=== PATIENT | female | born 1980 | race Caucasian/White ===

== ENCOUNTER 2019-06-15 12:19 | IRF | payer OTHER, SELFPAY ==
[2019-06-15 13:37] VITALS: BP 138/73; PULSE 85; RESP 18; TEMP 36.6; O2SAT 100; BMI 25.8
--- NOTE | 2019-06-15 14:17 | ADMGEN ---
This patient, Agustina Parsons, was admitted to [facility] Room 226-02. Patient/family oriented to hospital policies and general routines including ID bracelet, bed and alarms, visiting hours, pain management, procedures, bathroom and other care routines, personal items, smoking policy, room service/diet, and visiting hours. Valuables list has been completed. Information on how to activate the Rapid Response Team has been discussed. Patient/Family are encouraged to report perceived risks to care and to ask questions if they do not understand what they are told or what they should do.
[2019-06-15] MEDS: GABAPENTIN 300 MG CAPSULE PO (16:35)
[2019-06-15 16:40] VITALS: PULSE 85
[2019-06-15] MEDS: carvediloL 6.25 MG TABLET PO (16:40)
[2019-06-15] MEDS: metFORMIN HCL 500 MG TABLET 1000 MG PO (16:41)
[2019-06-15] MEDS: CEFDINIR 300 MG CAPSULE PO (16:42)
[2019-06-15 16:57] LABS: Glucose Point of Care 264 (65-105)
[2019-06-15] MEDS: DOXYCYCLINE HYCLATE 100 MG TABLET PO (21:47)
[2019-06-15] MEDS: ATORVASTATIN 40 MG TABLET PO (21:47)
[2019-06-15 22:00] VITALS: BP 128/64; PULSE 82; RESP 17; TEMP 36.3; O2SAT 100
[2019-06-15 22:16] LABS: Glucose Point of Care 90 (65-105)
[2019-06-16 05:09] LABS: Basophils Absolute Auto 0.1 K/mm3 (0.0-0.1); Basophils Percent Auto 0.7 % (0.2-1.2); Eosinophils Absolute Auto 0.7 K/mm3 (0-0.3); Eosinophils Percent Auto 6.6 % (0-4.4); Hematocrit 30.9 % (37.0-47.0); Hemoglobin 9.6 g/dL (12.0-15.0); Immature Granulocyte Absolute 0.04 K/mm3 (0.00-0.031); Immature Granulocyte Percent A 0.4 % (0-0.5); Lymphocytes Absolute Auto 4.41 K/mm3 (0.9-3.2); Lymphocytes Percent Auto 42.7 % (18.3-44.2); Mean Corpuscular HGB Conc 31.1 g/dl (32-36); Mean Corpuscular Hemoglobin 27.8 pg (26-34); Mean Corpuscular Volume 89.6 fl (80-100); Mean Platelet Volume 9.2 fl (7.4-10.4); Monocytes Absolute Auto 0.7 K/mm3 (0.1-0.6); Monocytes Percent Auto 6.3 % (2.6-8.5); Neutrophils Absolute Auto 4.5 K/mm3 (1.3-6.7); Neutrophils Percent Auto 43.3 % (45.5-73.1); Platelet Count Result 542 k/mm3 (150-375); Red Blood Count 3.45 M/mm3 (4.2-5.4); Red Cell Distribution Width 14.1 % (11.5-14.5); White Blood Count 10.3 K/mm3 (4.5-10.0)
[2019-06-16 05:33] LABS: Blood Urea Nitrogen 21 mg/dL (7-17); Calcium 9.6 mg/dL (8.4-10.2); Carbon Dioxide 29 mmol/L (22-30); Chloride 96 mmol/L (98-107); Estimated CRCL calculation 48 ml/min; Estimated Glomerular Filt Rate 50; Glucose 91 mg/dL (65-105); Potassium 4.7 mmol/L (3.4-5.0); Sodium 137 mmol/L (137-145)
[2019-06-16] MEDS: CEFDINIR 300 MG CAPSULE PO ×2 (05:41→17:38)
[2019-06-16 06:00] VITALS: BP 112/51; PULSE 84; RESP 18; TEMP 36.2; O2SAT 97
[2019-06-16 06:19] LABS: Glucose Point of Care 108 (65-105)
--- NOTE | 2019-06-16 09:30 | WPDREHABHP ---
H&P: HPI History of Present Illness Chief complaint: Right BKA Narrative: Agustina Parsons is a 38 year old female HISTORY OF PRESENT ILLNESS: The patient's primary rehab impairment category is amputation -lower extremity The etiologic diagnosis is osteomyelitis of right lower extremity I saw this patient [id number] on June 16, 2019 at 9:30 a.m. The patient is a 38-year-old white woman with a past medical history of uncontrolled diabetes mellitus, atherosclerosis of bilateral lower extremities, renal cell carcinoma status post partial nephrectomy, diabetic neuropathy diabetic retinopathy and chronic right foot wound who initially presented to as with [facility] on May 25, 2019 with complaints of worsening drainage, tingling, and discoloration to the right 3rd toe. Imaging demonstrated acute osteomyelitis. She was admitted and vascular surgery was consulted pre she underwent a right 3rd toe amputation and family's to November 07, 2019 Pri[facility] and Infectious Disease was consulted and she was started treated with vancomycin and cefepime and then was transitioned to vancomycin and Rocephin until June 10, 2019. She had fever on May 29, 2019 and underwent a right foot debridement on May 30, 2019. Wound cultures and May 30, 2019 showed no growth to date. She continued to have fevers and was switched to cefepime and and daptomycin on further [id number]. Her WBC continue to trend up from 11,[address] to 27,400. Vascular surgery continue to follow and patient underwent a right [id number] amputation on June 07, 2019. Postoperatively she experienced acute pain which she still has, encephalopathy, uncontrolled diabetes mellitus and acute blood-loss anemia. High acute pain is now controlled with oral pain medications. Acute encephalopathy thought to be related to narcotics and the patient was improved and cleared. She is alert and oriented times for now but in significant amount of pain acute blood-loss anemia stable with a hemoglobin of 9.0 after receiving a transfusion of 1 unit of packed RBCs on June 17, 2019. Diabetes which the patient tells me is the type 2 is better controlled with an increase in the Lantus from 25 units to 28 units. Leukocytosis resolved with the white count at 8600. Infectious Disease stopped all IV antibiotics in the setting of addition of the infected leg and ordered oral Omnicef and doxycycline for 10 days to be completed June 20, 2019. Vascular surgery ordered a knee immobilizer. Follow-up appointment with Dr. Dwyer is on July 13, 2019 DVT prophylaxis with subcutaneous heparin although the discharge medications from the referring hospitals does not include the subcutaneous heparin I will decide it depending upon how the patient is active in over acute rehab program Therapy was initiated at the acute care facility and the patient transferred to us from [facility] on June 15, 2019 FALLS OR SURGERIES: The patient has had major surgeries in the 100 days prior to admission. They had no falls in the past year. They had no falls with injury in the past year. PAST MEDICAL HISTORY: anxiety and depression, atherosclerosis of bilateral lower extremities, left-sided renal cell carcinoma, decreased visual acuity due to diabetic retinopathy, ischemic 5th toe right foot ulcer tobacco abuse uncontrolled diabetes mellitus with diabetic neuropathy. PAST SURGICAL HISTORY: Sees section x2, dilatation and curettage, exploratory laparotomy x2 for endometriosis, laparoscopic partial left nephrectomy, and tubal ligation SOCIAL HISTORY: patient is single, current everyday smoker, occasional alcohol use, no drug abuse FAMILY HISTORY: father had heart disease hypertension. Mother had colon cancer. Sister with diabetes PRIOR LEVEL OF FUNCTION: Eating was INDEPENDENT Oral Care was INDEPENDENT Toileting Hygiene was INDEPENDENT Shower/Bathing w
[2019-06-16] MEDS: carvediloL 6.25 MG TABLET PO ×2 (09:33→17:38)
[2019-06-16] MEDS: metFORMIN HCL 500 MG TABLET 1000 MG PO ×2 (09:34→17:38)
[2019-06-16] MEDS: ACIDOPHILUS/BULGARICUS CHEWABLE TABLET 1 TABLET PO (09:35)
[2019-06-16] MEDS: GABAPENTIN 300 MG CAPSULE PO ×3 (09:35→17:38)
[2019-06-16] MEDS: INSULIN GLARGINE (*BKC) 100 UNITS/ML 25 UNITS SUB-Q (09:35)
[2019-06-16] MEDS: DOXYCYCLINE HYCLATE 100 MG TABLET PO ×2 (09:35→20:32)
--- NOTE | 2019-06-16 11:10 | PCCCNOTE ---
On 06/16/19, the student, [Scout Mosqueda ], provided care and completed [facility] documentation on this patient. I have reviewed the student's documentation and agree with the findings.
[2019-06-16 11:45] LABS: Glucose Point of Care 126 (65-105)
[2019-06-16 13:05] VITALS: BMI 25.8
[2019-06-16 14:00] VITALS: BP 116/71; PULSE 84; RESP 17; TEMP 36.1; O2SAT 100
[2019-06-16 16:57] LABS: Glucose Point of Care 90 (65-105)
[2019-06-16 17:38] VITALS: PULSE 84
[2019-06-16] MEDS: ATORVASTATIN 40 MG TABLET PO (20:31)
[2019-06-16 21:12] LABS: Glucose Point of Care 64 (65-105)
[2019-06-16 22:00] VITALS: BP 123/70; PULSE 81; RESP 18; TEMP 36.3; O2SAT 100
[2019-06-17 00:46] LABS: Glucose Point of Care 37 (65-105)
[2019-06-17 01:09] LABS: Glucose Point of Care 47 (65-105)
[2019-06-17 01:20] LABS: Glucose Point of Care 58 (65-105)
[2019-06-17 01:46] LABS: Glucose Point of Care 52 (65-105)
[2019-06-17 02:15] LABS: Glucose Point of Care 71 (65-105)
[2019-06-17 06:00] VITALS: BP 112/64; PULSE 86; RESP 17; TEMP 36.2; O2SAT 94
[2019-06-17 07:14] LABS: Glucose Point of Care 197 (65-105)
[2019-06-17] MEDS: CEFDINIR 300 MG CAPSULE PO ×2 (08:45→17:15)
[2019-06-17] MEDS: carvediloL 6.25 MG TABLET PO (08:45)
[2019-06-17] MEDS: DOXYCYCLINE HYCLATE 100 MG TABLET PO ×2 (08:45→21:19)
[2019-06-17] MEDS: GABAPENTIN 300 MG CAPSULE PO ×3 (08:45→17:14)
[2019-06-17] MEDS: ACIDOPHILUS/BULGARICUS CHEWABLE TABLET 1 TABLET PO (08:45)
[2019-06-17] MEDS: lisinopriL 2.5 MG TABLET PO (09:00)
--- NOTE | 2019-06-17 09:00 | RPD ---
INDIVIDUALIZED PLAN OF CARE FOR Agustina Parsons Brief Synthesis of Pre-Admission Screen, Post-Admission Evaluation and Therapy Evaluations: The patient presents to rehab with osteomyelitis of the right lower extremity. Comorbidities include uncontrolled diabetes mellitus with hyperglycemia, diabetic neuropathy, renal cell carcinoma, peripheral vascular disease, leukocytosis, dyslipidemia, bilateral lower extremity arterial atherosclerosis, thyroid nodule, tobacco abuse, acute blood loss anemia, fever, infection, acute postoperative pain, chronic kidney disease. The patient requires physician services for medical oversight, management of post-op complications in the setting of present comorbidities, management of uncontrolled diabetes mellitus diagnosis, and pain management. Post-op complications have included acute postoperative pain, leukocytosis, acute blood loss anemia requiring transfusion, and acute kidney injury. The patient requires nursing services for anticoagulation therapy, diabetes training, DVT prophylactics, infection protection, medication management and education, pressure relief, and wound care. Deficits include:ADLs, Balance, Endurance, Mobility, Pain Management, ROM, Safety, Strength,Transfers Seat Joiner Chainstitch/Case Management for: Discharge Planning and Patient/Family Counseling Physical Therapy:5 days per week for 90 minutes. Treatments may include: Therapeutic Exercise, Gait Training, Neuromuscular Re-education, Transfer Training, Community Reintegration, Bed Mobility, Patient/Family Education, Wheelchair Mobility Group Therapy/Concurrent Therapy Rationales: -Improve attention span during functional activities in a distracted environment. -Enhance problem solving and/or adequate judgment skills during functional activities in a distracted environment. -Promote increased safety awareness in a distracted environment to reduce fall risk with functional tasks, transfers, and ambulation to allow a more safe, self-sufficient return to the home environment. -Improve dynamic balance skills to promote safety and independence with functional activities in a distracted environment for maximum gain. Occupational Therapy: 5 days per week for 90 minutes. Treatments may include: Therapeutic Exercise, Therapeutic Activity, Cognitive Training, Self-Care Transfer Training, Community Reintegration, Home Management, Patient/Family Education, Wheelchair Mobility Training, Energy Conservation Training Group Therapy/Concurrent Therapy Rationales: -Allow therapist to observe and teach generalization and carry-over of skills learned in individual therapy. -Enhance problem solving and sequencing skills during therapeutic activities in a distracted environment. -Promote increased safety awareness in a realistic setting to reduce fall risk with functional tasks due to visual and verbal distractions. -Increase functional level with ADLs, ADL transfers and use of adaptive equipment through therapeutic activities with others while promoting safety to allow a more safe, self-sufficient return home. Medical Prognosis: Good Anticipated Length of Stay: 12 days Rehab Goals: Eating Goal: 06-Independent Oral Hygiene Goal: 06-Independent Toileting Hygiene Goal: 06-Independent Shower/Bathe Self Goal: 06-Independent Upper Body Dressing Goal: 06-Independent Lower Body Dressing Goal: 06-Independent Putting On/Taking Off Footwear Goal: 06-Independent Rolling Left and Right Goal: 06-Independent Sit to Lying Goal: 06-Independent Lying to Sitting on Side of Bed Goal: 06-Independent Sit to Stand Goal: 06-Independent Chair/Uie-gm-Jnebj Transfer Goal: 06-Independent Toilet Transfer Goal: 06-Independent Car Transfer Goal: 06-Independent Walk 10' Goal: 06-Independent Walk 50' with Two Turns Goal: 06-Independent Walk 150' Goal: 06-Independent Walk 10' on Uneven Surface Goal: 06-Independent 1 Step (Curb) Goal: 04-Supervision or Touching Assistance 4 Steps Goal: 03-Partial/Modera
[2019-06-17 09:52] LABS: Glucose Point of Care 160 (65-105)
--- NOTE | 2019-06-17 10:40 | PCPTNOTE ---
Agustina Parsons was evaluated for a standard walker on 06/17/2019 by this physical therapist. The standard walker will resolve patient's mobility limitations and will be used for ADL's within the home. The patient can safely use the standard walker. ?The standard walker will resolve the patient?s mobility deficits, including all transfers, gait activities in and out of the home. Khalida Arriaga
[2019-06-17 11:54] LABS: Glucose Point of Care 111 (65-105)
[2019-06-17 14:00] VITALS: BP 122/68; PULSE 78; RESP 18; TEMP 36; O2SAT 99
--- NOTE | 2019-06-17 14:48 | PC.NURSE ---
Spoke with nurse at office of Dr. Juan Dwyer to inquire about date of staple removal. Nurse states do not touch those yulia or the doctor will be furious. That is why she is coming in for the appointment on the . The doctor will remove the yulia then. Patient made aware of staple removal scheduled for 07/13/19.
--- NOTE | 2019-06-17 15:37 | WPDNEURORHBP ---
Subjective Date/time seen: 06/17/19 15:37 Interval history: this 38-year-old poorly controlled diabetic woman is recuperating on the acute rehab with the right [id number]-[id number] amputation secondary to osteomyelitis patient is a smoker which is a risk factor she is on antibiotic however her sugars are fluctuating dipping down quite a bit and needs adjustment in her diabetic medication which I will do and she would also need a community health educator to see her and give us the recommendation about the changes which might be needed in future to control her diabetes Patient on the other hand is afebrile denies any headache nausea vomiting chest pain shortness of breath bowel or bladder control or any neurological symptoms apart from evidence of retinopathy and also neuropathy Review of Systems Review of Systems: All systems reviewed & are unremarkable except as noted in HPI and below Functional Status Ambulation Ability Ability to Ambulate 10 Feet: Contact Guard Ability to Ambulate 50 Feet With 2 Turns: Contact Guard Ambulation Assistive Devices: Walker, Standard Transfers Ability Ability to Transfer In/Out of Chair: Standby Assistance Exam Const: General: comfortable and no acute distress HENMT: General nose exam: Normal nares present Mouth: Yes moist mucous membranes Eyes: General: appearance normal, both eyes and all related structures Neck: Neck: supple and no JVD Resp: Effort & Inspection: normal respiratory effort Auscultation: clear to auscultation bilaterally Cardio: Rate: regular rate Rhythm: regular rhythm GI: GI Palp: Yes Soft to palpation Auscultation: normal bowel sounds Skin: General skin exam: normal color and no rashes or lesions noted Neuro: Other: patient is awake and alert well oriented time place and person has normal speech and mind function apart from diabetic retinopathy she really does not have any cranial nerve signs she has generalized weakness of both upper lower extremities with evidence of peripheral neuropathy and also evidence of peripheral vascular disease Extrem: Other: right BKA clean Psych: Mental Status: mental status grossly normal Objective Data Vital Signs Vital Signs: Vital Signs - 24 hr 06/16/19 17:38 06/16/19 22:00 06/17/19 06:00 Temperature 36.3 C L 36.2 C L Pulse Rate 84 81 86 Respiratory Rate 18 17 Blood Pressure 123/70 112/64 Pulse Oximetry 100 94 06/17/19 14:00 Temperature 36.0 C L Pulse Rate 78 Respiratory Rate 18 Blood Pressure 122/68 Pulse Oximetry 99 Intake/Output Intake/Output: Intake & Output 06/14/19 06/15/19 06/16/19 06/17/19 23:59 23:59 23:59 23:59 Intake Total 240 720 360 Balance 240 720 360 Meds/Results Medications: Active Medications Generic Name Dose Route Start Last Admin Trade Name Freq PRN Reason Stop Dose Admin Hydrocodone Bitart/Acetaminophen 1 tab 06/15/19 15:01 [place] 5-325 Mg PO Q6H PRN Pain (Scale Score 4-6) Atorvastatin Calcium 40 mg 06/15/19 21:00 06/16/19 20:31 Lipitor PO 40 mg HS JENNIE Administration Carvedilol 6.25 mg 06/15/19 17:00 06/17/19 08:45 Coreg PO 6.25 mg BID JENNIE Administration Cefdinir 300 mg 06/15/19 18:00 06/17/19 08:45 Omnicef PO 06/22/19 06:01 300 mg Q12H JENNIE Administration Doxycycline Hyclate 100 mg 06/15/19 21:00 06/17/19 08:45 Vibramycin Tab PO 06/22/19 09:01 100 mg Q12HR JENNIE Administration Gabapentin 300 mg 06/15/19 17:00 06/17/19 14:15 Neurontin PO 300 mg TID JENNIE Administration Glyburide 6 mg 06/15/19 17:00 06/17/19 07:37 Glynase PO Not Given BIDWM [facility] Insulin Glargine 25 units 06/16/19 09:00 06/17/19 07:39 Lantus SUB-Q Not Given DAILY [facility] Lactobacillus Acidophilus 1 tablet 06/16/19 09:00 06/17/19 08:45 Lactinex Chewable Tablet PO 1 tablet DAILY JENNIE Administration Lisinopril 2.5 mg 06/16/19 09:00 06/17/19 10:00 Prinivil PO 2.5 mg DAILY JENNIE Administration Metformin H
[2019-06-17 17:06] LABS: Glucose Point of Care 143 (65-105)
[2019-06-17] MEDS: ATORVASTATIN 40 MG TABLET PO (21:19)
[2019-06-17 22:00] VITALS: BP 112/63; PULSE 82; RESP 20; TEMP 36.3; O2SAT 100
[2019-06-17 22:16] LABS: Glucose Point of Care 172 (65-105)
--- NOTE | 2019-06-18 05:50 | PC.NURSE ---
Addendum entered by Kirti Hua RN 06/19/19 04:10: Mara Oakes CNA, present at bedside. Original Note: Noted cigarette smell in hallway, with increased intensity upon entering patients room. Patient asleep in bed on her side. Easily aroused to her name. When asked about smoking, she stated, I smoked one then realized what I was doing and grabbed a tissue and ice and threw it in the trash. Patient confirmed she had been asleep when she smoked the cigarette. Reviewed hospital smoking policy at length, discussed smoking cessation products available while hospitalized, and expressed safety concerns especially since she is receiving narcotics routinely. Time spent at bedside. Cigarettes and core man placed at nurses station. Vickie, Instructional Technologist, notified.
[2019-06-18 06:00] VITALS: BP 152/64; PULSE 84; RESP 18; TEMP 36.6; O2SAT 94
[2019-06-18] MEDS: CEFDINIR 300 MG CAPSULE PO ×2 (06:35→18:25)
[2019-06-18 07:06] LABS: Glucose Point of Care 197 (65-105)
[2019-06-18] MEDS: lisinopriL 2.5 MG TABLET PO (09:10)
[2019-06-18] MEDS: GABAPENTIN 300 MG CAPSULE PO ×3 (09:48→18:25)
[2019-06-18] MEDS: ACIDOPHILUS/BULGARICUS CHEWABLE TABLET 1 TABLET PO (09:49)
[2019-06-18] MEDS: DOXYCYCLINE HYCLATE 100 MG TABLET PO ×2 (09:49→21:33)
--- NOTE | 2019-06-18 10:47 | PC.NURSE ---
1015: Spoke with patient regarding smoking policy and rationale for same including safety concerns. Verbalized understanding of smoking policy after reeducation but states I am going to smoke anyway. I don't care. I am going to smoke. When my family comes in later I will just have them bring me more cigarettes. 1020: powdered sugar supervisor, Sarah, made aware of conversation. 1025: Dr. Hensley made aware of patient smoking, patient reeducation on smoking policy and patient's verbalization regarding her intention to continue to smoke contrary to hospital policy. Dr. Hensley states I will come in this morning to see her and will talk to her about smoking.
[2019-06-18 12:03] LABS: Glucose Point of Care 136 (65-105)
--- NOTE | 2019-06-18 13:08 | PC.NURSE ---
1300: Dr. Hensley in to talk to patient about smoking cessation and unit guidelines regarding smoking. Verbalized understanding of unit guidelines but continues to voice intention to go outside to smoke.
[2019-06-18 14:00] VITALS: BP 127/62; PULSE 84; RESP 20; TEMP 36.3; O2SAT 100
[2019-06-18 17:51] LABS: Glucose Point of Care 160 (65-105)
[2019-06-18 18:24] VITALS: PULSE 84
[2019-06-18] MEDS: carvediloL 6.25 MG TABLET PO (18:24)
--- NOTE | 2019-06-18 18:54 | PC.NURSE ---
Made statement that Dr. Hensley spoke with her about going outside and smoking, and was OK if she went out, but not to smoke and to not say that was what she was doing. Around 1620 went outside with her cousin, who also took her cigarettes that had been taken from her this morning; was gone for approximately an hour, but came back with other family members. Checked blood sugar and went out again. Spoke to her and cousin about not smoking in the room and that smoking was not good for the healing process. I also found a vape type device as well and told her that could spark, but stated it doesn't work, but family was taking as well.
[2019-06-18] MEDS: ATORVASTATIN 40 MG TABLET PO (21:33)
[2019-06-18 22:00] VITALS: BP 115/57; PULSE 95; RESP 20; TEMP 36.4; O2SAT 100
[2019-06-18 22:13] LABS: Glucose Point of Care 224 (65-105)
[2019-06-19 06:00] VITALS: BP 136/70; PULSE 87; RESP 18; TEMP 36.7; O2SAT 100
[2019-06-19] MEDS: CEFDINIR 300 MG CAPSULE PO ×2 (06:09→17:25)
[2019-06-19 07:04] LABS: Glucose Point of Care 196 (65-105)
[2019-06-19 09:59] VITALS: PULSE 92
[2019-06-19] MEDS: carvediloL 6.25 MG TABLET PO ×2 (09:59→17:25)
[2019-06-19] MEDS: ACIDOPHILUS/BULGARICUS CHEWABLE TABLET 1 TABLET PO (10:01)
[2019-06-19] MEDS: GABAPENTIN 300 MG CAPSULE PO ×3 (10:01→17:24)
[2019-06-19] MEDS: lisinopriL 2.5 MG TABLET PO ×2 (10:01→10:02)
[2019-06-19] MEDS: DOXYCYCLINE HYCLATE 100 MG TABLET PO ×2 (10:02→21:11)
[2019-06-19 12:13] LABS: Glucose Point of Care 191 (65-105)
[2019-06-19 14:00] VITALS: BP 107/74; PULSE 84; RESP 20; TEMP 36.5; O2SAT 100
--- NOTE | 2019-06-19 14:40 | WPDNEURORHBP ---
Subjective Date/time seen: 06/19/19 14:40 Review of Systems Review of Systems: All systems reviewed & are unremarkable except as noted in HPI and below Functional Status Ambulation Ability Ability to Ambulate 10 Feet: Contact Guard Ability to Ambulate 50 Feet With 2 Turns: Contact Guard Ambulation Assistive Devices: Walker, Standard Transfers Ability Ability to Transfer In/Out of Chair: Standby Assistance Exam Const: General: no acute distress HENMT: Head: normocephalic Eyes: General: appearance normal, both eyes and all related structures Alignment and Position: alignment normal Periorbital: periorbital findings normal Eyelids: eyelids normal Conjunctivae: conjunctivae normal Sclera: sclerae normal Pupils: Equal, round and reactive pupils present EOM: EOMs intact bilaterally Neck: Neck: full ROM and no lymphadenopathy Resp: Auscultation: clear to auscultation bilaterally Cardio: Rate: regular rate Rhythm: regular rhythm Skin: General skin exam: no rashes or lesions noted Neuro: General: patient oriented x3, moves all extremities and CN's II-XI intact bilaterally Cranial nerves: Yes CN's II-XII intact bilaterally, Yes Bilaterally intact EOM present, Yes Nystagmus not present, Yes Normal facial strength present, Yes Midline tongue present, Yes Symmetric palate elevation present, Yes Ability to bilaterally rotate head present and Yes Ability to bilaterally elevate shoulders present Cognition (Neuro): normal cognition Speech: normal speech Gait exam (Neuro): Ataxic gait present (romberg positive) Sensory Exam: Sensory deficit (Neuro) (distally ) Deep tendon reflexes (DTR's): Right triceps reflex intensity grade: 1+, Left triceps reflex intensity grade: 1+, Rt Biceps (C5, C6): 1+, Left biceps reflex intensity grade: 1+, Right brachioradialis reflex intensity grade: 1+, Left brachioradialis reflex intensity grade: 1+, Right patellar reflex intensity grade: 0, Left patellar reflex intensity grade: 0, Right ankle reflex intensity grade: 0 and Left ankle reflex intensity grade: 0 Plantar Reflex Responses: downgoing: bilateral Coordination: Romberg test positive Psych: Appearance: grossly normal Objective Data Vital Signs Vital Signs: Vital Signs - 24 hr 06/18/19 18:24 06/18/19 22:00 06/19/19 06:00 Temperature 36.4 C L 36.7 C Pulse Rate 84 95 87 Respiratory Rate 20 18 Blood Pressure 115/57 L 136/70 Pulse Oximetry 100 100 06/19/19 09:59 06/19/19 14:00 Temperature 36.5 C Pulse Rate 92 84 Respiratory Rate 20 Blood Pressure 107/74 Pulse Oximetry 100 Intake/Output Intake/Output: Intake & Output 06/16/19 06/17/19 06/18/19 06/19/19 23:59 23:59 23:59 23:59 Intake Total 720 600 500 240 Balance 720 600 500 240 Meds/Results Medications: Active Medications Generic Name Dose Route Start Last Admin Trade Name Freq PRN Reason Stop Dose Admin Hydrocodone Bitart/Acetaminophen 1 tab 06/15/19 15:01 [place] 5-325 Mg PO Q6H PRN Pain (Scale Score 4-6) Atorvastatin Calcium 40 mg 06/15/19 21:00 06/18/19 21:33 Lipitor PO 40 mg HS JENNIE Administration Carvedilol 6.25 mg 06/15/19 17:00 06/19/19 09:59 Coreg PO 6.25 mg BID JENNIE Administration Cefdinir 300 mg 06/15/19 18:00 06/19/19 06:09 Omnicef PO 06/22/19 06:01 300 mg Q12H JENNIE Administration Doxycycline Hyclate 100 mg 06/15/19 21:00 06/19/19 10:02 Vibramycin Tab PO 06/22/19 09:01 100 mg Q12HR JENNIE Administration Gabapentin 300 mg 06/15/19 17:00 06/19/19 13:09 Neurontin PO 300 mg TID JENNIE Administration Glyburide 6 mg 06/15/19 17:00 06/17/19 07:37 Glynase PO Not Given BIDWM [facility] Insulin Glargine 25 units 06/16/19 09:00 06/17/19 07:39 Lantus SUB-Q Not Given DAILY [facility] Lactobacillus Acidophilus 1 tablet 06/16/19 09:00 06/19/19 10:01 Lactinex Chewable Tablet PO 1 tablet DAILY JENNIE Administration Lisinopril 2.5 mg 06/16/19 09:00 06/19/19 10:56
[2019-06-19 17:25] VITALS: PULSE 84
[2019-06-19 17:38] LABS: Glucose Point of Care 212 (65-105)
[2019-06-19] MEDS: ATORVASTATIN 40 MG TABLET PO (21:10)
[2019-06-19 21:18] LABS: Glucose Point of Care 270 (65-105)
[2019-06-19 22:00] VITALS: BP 160/89; PULSE 88; RESP 18; TEMP 36.3; O2SAT 100
[2019-06-20] MEDS: CEFDINIR 300 MG CAPSULE PO ×2 (05:37→18:05)
[2019-06-20 06:00] VITALS: BP 105/54; PULSE 81; RESP 18; TEMP 36.3; O2SAT 100
[2019-06-20 06:56] LABS: Glucose Point of Care 232 (65-105)
[2019-06-20] MEDS: DOXYCYCLINE HYCLATE 100 MG TABLET PO ×2 (09:20→20:46)
[2019-06-20] MEDS: ACIDOPHILUS/BULGARICUS CHEWABLE TABLET 1 TABLET PO (09:20)
[2019-06-20] MEDS: GABAPENTIN 300 MG CAPSULE PO ×3 (09:20→16:49)
[2019-06-20] MEDS: carvediloL 6.25 MG TABLET PO ×2 (09:20→20:46)
[2019-06-20] MEDS: INSULIN GLARGINE (*BKC) 100 UNITS/ML 25 UNITS SUB-Q (09:27)
[2019-06-20] MEDS: lisinopriL 2.5 MG TABLET PO (10:15)
[2019-06-20] MEDS: metFORMIN HCL 500 MG TABLET 1000 MG PO ×2 (10:30→20:46)
[2019-06-20 12:11] LABS: Glucose Point of Care 202 (65-105)
[2019-06-20 14:00] VITALS: BP 104/68; PULSE 77; RESP 17; TEMP 36.3; O2SAT 100
[2019-06-20 16:52] LABS: Glucose Point of Care 80 (65-105)
--- NOTE | 2019-06-20 17:03 | PC.NURSE ---
1700: Left unit with visitors. Reeducated on unit policy regarding leaving the unit. Verbalized understanding but opts to leave unit contrary to policy. supervisor mattress and boxsprings and physician aware.
[2019-06-20 20:28] LABS: Glucose Point of Care 126 (65-105)
[2019-06-20 20:46] VITALS: PULSE 80
[2019-06-20] MEDS: ATORVASTATIN 40 MG TABLET PO (20:46)
[2019-06-20 22:00] VITALS: BP 117/57; PULSE 86; RESP 20; TEMP 36.4; O2SAT 94
[2019-06-21] MEDS: CEFDINIR 300 MG CAPSULE PO ×2 (05:26→20:59)
[2019-06-21 06:00] VITALS: BP 122/64; PULSE 84; RESP 18; TEMP 36.4; O2SAT 96
[2019-06-21 07:19] LABS: Glucose Point of Care 81 (65-105)
[2019-06-21] MEDS: GABAPENTIN 300 MG CAPSULE PO ×3 (09:19→20:59)
[2019-06-21] MEDS: ACIDOPHILUS/BULGARICUS CHEWABLE TABLET 1 TABLET PO (09:19)
[2019-06-21] MEDS: DOXYCYCLINE HYCLATE 100 MG TABLET PO ×2 (09:19→20:57)
[2019-06-21] MEDS: carvediloL 6.25 MG TABLET PO ×2 (09:19→20:57)
[2019-06-21] MEDS: lisinopriL 2.5 MG TABLET PO (09:22)
[2019-06-21] MEDS: INSULIN GLARGINE (*BKC) 100 UNITS/ML 25 UNITS SUB-Q (09:28)
[2019-06-21 12:13] LABS: Glucose Point of Care 66 (65-105)
--- NOTE | 2019-06-21 12:25 | PCPTNOTE ---
Agustina Parsons was evaluated for a standard walker on 06/21/2019 by this physical therapist. The standard walker will resolve patient's mobility limitations and will be used for ADL's within the home. The patient can safely use the standard walker. ?The standard walker will resolve the patient?s mobility deficits, including gait in her home shorter distances, transfers and completing self care safely.
--- NOTE | 2019-06-21 12:30 | PCPTNOTE ---
Khalida Acevedo PT completed an inpatient rehab wheelchair evaluation on Agustina Parsons on 06/21/2019. The patient is unable to safely and independently ambulate household distances due to their current impairments. Their diagnosis is Right BKA and their impairments include decreased strength, decreased endurance, decreased range of motion, decreased balance, lower extremity weakness, and ataxia. Agustina's weight bearing status is non weight-bearing on her right due to recent below the knee amputation as tolerated on the bilateral lower legs. The patient demonstrates significant functional mobility limitations that impair their ability to participate in mobility-related activities of daily living (MRADLs), including toileting, feeding, dressing, grooming, and bathing in the customary locations in the home. These limitations cannot be sufficiently resolved by the use of an appropriately fitted cane or walker. It is recommended that the patient utilize a wheelchair for functional mobility within the home in order to facilitate optimal safety, independence and participation in all MRADL's and adequately access their home environment on a regular basis. The patient's home provides adequate access between rooms, maneuvering space, and surfaces to accommodate the recommended wheelchair. The use of a wheelchair for functional mobility is strongly recommended and the patient is receptive to using the wheelchair. The use of this wheelchair will significantly improve the patient's ability to participate in MRADLS and the patient will use it on a regular basis in the home. This will facilitate optimal safety, independence, and participation. The patient has demonstrated sufficient physical and mental capabilities needed to safely propel a manual wheelchair that is provided in the home during a typical day. Recommended Wheelchair Frame: standard 16 height, 18 width Recommended Wheelchair Size: standard 16 height, 18 width Recommended Wheelchair Cushion: Wheelchair Leg Recommendations: detachable, elevating leg rests Elevating legrests are recommended because the patient has significant edema of the right lower extremity that requires an elevating legrest. Anti-tippers are recommended due to patient demonstrating increased risk for falls. They would benefit from anti-tippers with added safety and stabilization. Khalida Acevedo PT 06/21/19 Evaluating Therapist Date I agree with and certify that the above recommendation is medically necessary. Referring Physician Date I agree with and certify that the above recommendation is medically necessary. Referring Physician Date
--- NOTE | 2019-06-21 12:53 | PC.NURSE ---
1200: spoke to Dr. Ferris regarding a.m. blood glucose of 80. All previous blood sugar reading and current orders Metformin, Glyburide and Lantus reviewed. Orders received to decrease Metformin from 1000 mg BID to 750 mg BID and to decrease Glyburide to 3 mg, from 6 mg. Patient aware and verbalizes understanding.
--- NOTE | 2019-06-21 13:18 | PCDIET ---
Nutrition Follow-Up Complete: Increased protein/calorie needs related to increased demands for wound healing as evidenced by recent right BKA. Patient to consume 75% of meals or greater. Goal not met. Eating average of 63% of meals. Nutrition recommendation: Recommend continuation of DM CHO consistent diet in order to provide pt with adequate nutrition and establish glucose control. Last recorded weight is 68.2 kg. Bowel Motility:+BM 3/3 (x2) Labs Reviewed:POC Capillary glucose (81) Meds Noted:Lipitor, vibranycin, glynase, lantus, percocet, oxycodone Additional Notes: Pt states appetite is low but it normally is at home; eating about the same here as at home. No N/V but complained of diarrhea today (2 +BMs). Nursing had been informed. Encouraged small, frequent meals to help increase nutrition intake. Follow up in 5 days.
[2019-06-21 14:00] VITALS: BP 107/56; PULSE 78; RESP 20; TEMP 36.4; O2SAT 100
--- NOTE | 2019-06-21 14:02 | PCNSR ---
On 06/21/19, the student, [Jess Sullivan ], provided care and completed [facility] documentation on this patient. I have reviewed the student's documentation and agree with the findings.
--- NOTE | 2019-06-21 15:16 | WPDNEURORHBP ---
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 she is doing fairly well however is quite noncompliant and at times try to smoke in her room and spite of over instructions and counseling and at times tried to get out side the hospital and small She was counseled about the smoking otherwise she denies any headache nausea vomiting chest pain shortness of breath and wants to go home Review of Systems Review of Systems: All systems reviewed & are unremarkable except as noted in HPI and below Functional Status Ambulation Ability Ability to Ambulate 10 Feet: Standby Assistance Ability to Ambulate 50 Feet With 2 Turns: Standby Assistance Ambulation Assistive Devices: Walker, Standard Transfers Ability Ability to Transfer In/Out of Chair: Standby Assistance Exam Const: General: comfortable and no acute distress HENMT: General nose exam: Normal nares present Mouth: Yes moist mucous membranes Eyes: General: appearance normal, both eyes and all related structures Neck: Neck: supple and no JVD Resp: Effort & Inspection: normal respiratory effort Auscultation: clear to auscultation bilaterally Cardio: Rate: regular rate Rhythm: regular rhythm GI: GI Palp: Yes Soft to palpation Auscultation: normal bowel sounds Skin: General skin exam: normal color and no rashes or lesions noted Neuro: Other: patient is awake and alert will oriented time place and person has evidence of peripheral neuropathy and peripheral vascular disease all of which are stable Extrem: Other: right BKA is clean and healthy Psych: Mental Status: mental status grossly normal Objective Data Vital Signs Vital Signs: Vital Signs - 24 hr 06/20/19 20:46 06/20/19 22:00 06/21/19 06:00 Temperature 36.4 C L 36.4 C Pulse Rate 80 86 84 Respiratory Rate 20 18 Blood Pressure 117/57 L 122/64 Pulse Oximetry 94 96 Intake/Output Intake/Output: Intake & Output 06/18/19 06/19/19 06/20/19 06/21/19 23:59 23:59 23:59 23:59 Intake Total 500 240 600 240 Balance 500 240 600 240 Meds/Results Medications: Active Medications Generic Name Dose Route Start Last Admin Trade Name Freq PRN Reason Stop Dose Admin Hydrocodone Bitart/Acetaminophen 1 tab 06/15/19 15:01 Fisher 5-325 Mg PO Q6H PRN Pain (Scale Score 4-6) Atorvastatin Calcium 40 mg 06/15/19 21:00 06/20/19 20:46 Lipitor PO 40 mg HS JENNIE Administration Carvedilol 6.25 mg 06/20/19 21:00 06/21/19 09:19 Coreg PO 6.25 mg Q12HR JENNIE Administration Cefdinir 300 mg 06/15/19 18:00 06/21/19 05:26 Omnicef PO 06/22/19 06:01 300 mg Q12H JENNIE Administration Doxycycline Hyclate 100 mg 06/15/19 21:00 06/21/19 09:19 Vibramycin Tab PO 06/22/19 09:01 100 mg Q12HR JENNIE Administration Gabapentin 300 mg 06/15/19 17:00 06/21/19 14:01 Neurontin PO 300 mg TID JENNIE Administration Glyburide 3 mg 06/21/19 21:00 Glynase PO Q12HR [facility] Insulin Glargine 25 units 06/16/19 09:00 06/21/19 09:28 Lantus SUB-Q 25 units DAILY [facility] Administration Lactobacillus Acidophilus 1 tablet 06/16/19 09:00 06/21/19 09:19 Lactinex Chewable Tablet PO 1 tablet DAILY [facility] Administration Lisinopril 2.5 mg 06/16/19 09:00 06/21/19 09:22 Prinivil PO 2.5 mg DAILY JENNIE Administration Metformin HCl 750 mg 06/21/19 21:00 Glucophage PO Q12HR [facility] Oxycodone HCl 15 mg 06/16/19 13:30 06/21/19 13:59 Roxicodone Ir Tablet PO 15 mg Q4H JENNIE Administration Oxycodone/Acetaminophen 1 tablet 06/15/19 15:01 06/18/19 04:47 Percocet 5-325 Mg PO 1 tablet Q4H PRN Administration Pain (Scale Score 7-10) Labs Labs: Laboratory Results - last 24 hr 06/20/19 06/20/19 06/21/19 16:42 20:22 07:12 POC Capillary Glucose 80 126 H 81 06/21/19 12:07 POC Capillary Glucose 66 Progress Note: A&P Asse
[2019-06-21 17:14] LABS: Glucose Point of Care 70 (65-105)
[2019-06-21 20:57] VITALS: PULSE 88
[2019-06-21] MEDS: metFORMIN HCL 250 MG TABLET 750 MG PO (20:58)
[2019-06-21] MEDS: ATORVASTATIN 40 MG TABLET PO (20:59)
[2019-06-21 21:09] LABS: Glucose Point of Care 180 (65-105)
[2019-06-21 22:00] VITALS: BP 150/69; PULSE 87; RESP 16; TEMP 36.6; O2SAT 100
[2019-06-22] MEDS: CEFDINIR 300 MG CAPSULE PO (05:47)
[2019-06-22 06:00] VITALS: BP 107/47; PULSE 78; RESP 17; TEMP 36.1; O2SAT 97
[2019-06-22 07:08] LABS: Glucose Point of Care 76 (65-105)
[2019-06-22 08:39] VITALS: PULSE 76
[2019-06-22] MEDS: GABAPENTIN 300 MG CAPSULE PO ×3 (08:39→17:01)
[2019-06-22] MEDS: ACIDOPHILUS/BULGARICUS CHEWABLE TABLET 1 TABLET PO (08:39)
[2019-06-22] MEDS: carvediloL 6.25 MG TABLET PO ×2 (08:39→21:38)
[2019-06-22] MEDS: lisinopriL 2.5 MG TABLET PO (08:40)
--- NOTE | 2019-06-22 09:21 | WPDNEURORHBP ---
Subjective Date/time seen: 06/22/19 09:21 Interval history: this 38-year-old poorly controlled diabetic is here in the acute rehab after having had a BKA related to underlying diabetes and also peripheral vascular disease on top of it she is a smoker and quite noncompliant about her him smoking habits in any event she has completed the course here for the rehab and achieved the goals and will be discharged tomorrow with instructions given to her particular reference to her smoking habits and also follow-up with the physicians involved with her care so that the diabetes can be managed better She has been running relatively low sugars particularly early in the morning so medications have been adjusted however as brittle diabetic she is she will have a close and she should have a close follow-up with the physicians involved with her care She denies any headache nausea vomiting chest pain or shortness of breath diarrhea vomiting fever chills sore throat Review of Systems Review of Systems: All systems reviewed & are unremarkable except as noted in HPI and below Functional Status Ambulation Ability Ability to Ambulate 10 Feet: Standby Assistance Ability to Ambulate 50 Feet With 2 Turns: Standby Assistance Ambulation Assistive Devices: Walker, Standard Transfers Ability Ability to Transfer In/Out of Chair: Standby Assistance Exam Const: General: comfortable and no acute distress HENMT: General nose exam: Normal nares present Mouth: Yes moist mucous membranes Eyes: General: appearance normal, both eyes and all related structures Neck: Neck: supple and no JVD Resp: Effort & Inspection: normal respiratory effort Auscultation: clear to auscultation bilaterally Cardio: Rate: regular rate Rhythm: regular rhythm GI: GI Palp: Yes Soft to palpation Auscultation: normal bowel sounds Skin: General skin exam: normal color and no rashes or lesions noted Neuro: Other: patient is awake and alert will oriented in time place and person is speech and language functions are normal memory is normal cranial exam shows normal apart from evidence of diabetic return retinopathy the amputation site is clean and healthy she does have evidence of peripheral neuropathy and peripheral vascular disease Extrem: Other: evidence of peripheral neuropathy and and the peripheral vascular disease the stump is clean of the right BKA Psych: Mental Status: mental status grossly normal Objective Data Vital Signs Vital Signs: Vital Signs - 24 hr 06/21/19 14:00 06/21/19 20:57 06/21/19 22:00 Temperature 36.4 C 36.6 C Pulse Rate 78 88 87 Respiratory Rate 20 16 Blood Pressure 107/56 L 150/69 H Pulse Oximetry 100 100 06/22/19 06:00 06/22/19 08:39 Temperature 36.1 C L Pulse Rate 78 76 Respiratory Rate 17 Blood Pressure 107/47 L Pulse Oximetry 97 Intake/Output Intake/Output: Intake & Output 06/19/19 06/20/19 06/21/19 06/22/19 23:59 23:59 23:59 23:59 Intake Total 240 600 720 50 Balance 240 600 720 50 Meds/Results Medications: Active Medications Generic Name Dose Route Start Last Admin Trade Name Freq PRN Reason Stop Dose Admin Hydrocodone Bitart/Acetaminophen 1 tab 06/15/19 15:01 Geary 5-325 Mg PO Q6H PRN Pain (Scale Score 4-6) Atorvastatin Calcium 40 mg 06/15/19 21:00 06/21/19 20:59 Lipitor PO 40 mg HS JENNIE Administration Carvedilol 6.25 mg 06/20/19 21:00 06/22/19 08:39 Coreg PO 6.25 mg Q12HR JENNIE Administration Dextrose 12.5 gm 06/22/19 09:15 Dextrose 50% Syringe IV PUSH PRN PRN Hypoglycemia Protocol Gabapentin 300 mg 06/15/19 17:00 06/22/19 08:39 Neurontin PO 300 mg TID JENNIE Administration Glucagon 1 mg 06/22/19 09:15 Glucagon For Inj IM PRN PRN Hypoglycemia Protocol Glucose 15 gm 06/22/19 09:15 Glutose 15 PO PRN PRN Hypoglycemia Protocol Glyburide 3 mg 06/21/19 21:00 06/22/19 08:43 Glynase PO 3 mg
[2019-06-22] MEDS: DOXYCYCLINE HYCLATE 100 MG TABLET PO (09:52)
[2019-06-22 11:47] LABS: Glucose Point of Care 97 (65-105)
--- NOTE | 2019-06-22 11:51 | PCOTNOTE ---
Attempted OT treatment, pt reported feeling to nauseous and will not get out of bed at this time or participate in any OT activities.
--- NOTE | 2019-06-22 12:50 | PCPTNOTE ---
Patient refused treatment this session due to not feeling well. Patient states that she feels nauseous and does not want participate. Patient educated on compliance with therapy treatments, however patient continued to refuse. Attempted multiple times (at 10:43 and 10:55) to convince patient to participate in a home safety group. Patient missed 60 minutes of PT
[2019-06-22 14:00] VITALS: BP 92/54; PULSE 82; RESP 18; TEMP 36.5; O2SAT 99
[2019-06-22 17:00] LABS: Glucose Point of Care 126 (65-105)
[2019-06-22 21:13] LABS: Glucose Point of Care 225 (65-105)
[2019-06-22 21:38] VITALS: PULSE 80
[2019-06-22] MEDS: metFORMIN HCL 500 MG TABLET PO (21:38)
[2019-06-22] MEDS: ATORVASTATIN 40 MG TABLET PO (21:38)
[2019-06-22] MEDS: INSULIN GLARGINE (*BKC) 100 UNITS/ML 20 UNITS SUB-Q (21:39)
[2019-06-22 22:00] VITALS: BP 133/55; PULSE 97; RESP 18; TEMP 36.5; O2SAT 100
[2019-06-23 05:18] LABS: Basophils Absolute Auto 0.1 K/mm3 (0.0-0.1); Basophils Percent Auto 0.8 % (0.2-1.2); Eosinophils Absolute Auto 0.6 K/mm3 (0-0.3); Hemoglobin 9.2 g/dL (12.0-15.0); Immature Granulocyte Absolute 0.03 K/mm3 (0.00-0.031); Immature Granulocyte Percent A 0.3 % (0-0.5); Lymphocytes Absolute Auto 4.53 K/mm3 (0.9-3.2); Lymphocytes Percent Auto 48.6 % (18.3-44.2); Mean Corpuscular HGB Conc 31.7 g/dl (32-36); Mean Corpuscular Hemoglobin 28.4 pg (26-34); Mean Corpuscular Volume 89.5 fl (80-100); Mean Platelet Volume 10.4 fl (7.4-10.4); Monocytes Absolute Auto 0.7 K/mm3 (0.1-0.6); Monocytes Percent Auto 7.6 % (2.6-8.5); Neutrophils Absolute Auto 3.4 K/mm3 (1.3-6.7); Neutrophils Percent Auto 36.7 % (45.5-73.1); Platelet Count Result 366 k/mm3 (150-375); Red Blood Count 3.24 M/mm3 (4.2-5.4); Red Cell Distribution Width 14.4 % (11.5-14.5); White Blood Count 9.3 K/mm3 (4.5-10.0)
[2019-06-23 05:44] LABS: Blood Urea Nitrogen 25 mg/dL (7-17); Calcium 9.2 mg/dL (8.4-10.2); Carbon Dioxide 33 mmol/L (22-30); Chloride 101 mmol/L (98-107); Estimated CRCL calculation 44 ml/min; Estimated Glomerular Filt Rate 45; Glucose 136 mg/dL (65-105); Potassium 5.1 mmol/L (3.4-5.0); Sodium 137 mmol/L (137-145)
[2019-06-23 06:00] VITALS: BP 128/60; PULSE 88; RESP 18; TEMP 36.5; O2SAT 99
[2019-06-23 07:02] LABS: Glucose Point of Care 110 (65-105)
[2019-06-23] MEDS: ACIDOPHILUS/BULGARICUS CHEWABLE TABLET 1 TABLET PO (08:47)
[2019-06-23 08:48] VITALS: PULSE 88
[2019-06-23] MEDS: carvediloL 6.25 MG TABLET PO (08:48)
[2019-06-23] MEDS: lisinopriL 2.5 MG TABLET PO (08:48)
[2019-06-23] MEDS: GABAPENTIN 300 MG CAPSULE PO (08:48)
[2019-06-23] MEDS: metFORMIN HCL 500 MG TABLET PO (08:49)
[2019-06-23 11:52] LABS: Glucose Point of Care 110 (65-105)
--- NOTE | 2019-06-30 10:11 | DS_ITS ---
DATE OF DISCHARGE: 06/23/2019 DISCHARGE ACUTE REHAB DIAGNOSIS: Amputation of lower extremity with etiological diagnosis of osteomyelitis of the right lower extremity. DISCHARGE ACTIVE COMORBID CONDITIONS: 1. Anxiety with depression. 2. Atherosclerosis of bilateral lower extremities. 3. Decreased visual acuity due to diabetic retinopathy. 4. Diabetes mellitus. REASON FOR ADMISSION: 38-year-old, right-handed female, with ongoing history of uncontrolled diabetes, atherosclerosis of bilateral lower extremities, renal cell carcinoma for which she has undergone partial nephrectomy, diabetic neuropathy, retinopathy, and neuropathy and also chronic right foot wound, presented to [facility] on 05/25/2019 with complaints of worsening drainage along with tingling and discoloration to right 3rd toe. Radiological investigation documented acute osteomyelitis. She was admitted for the vascular surgery, underwent right 3rd toe amputation, was started on vancomycin, cefepime, and transitioned to vancomycin, Rocephin up until June 10, 2019. She was febrile on 05/29/2019, underwent a right foot debridement on 05/30. Wound cultures showed no growth. She continued to have fever, was switched to cefepime and daptomycin. Her WBC continued to trend upward from 11,200 up to 27,400. Vascular Surgery consultation was obtained. The patient underwent right [id number] amputation on 06/07/2019. Postoperatively, she complained of pain. Her diabetes became uncontrolled. She became anemic because of blood loss and also was documented to have encephalopathy, which was attributed to narcotics. Gradually, she became awake, alert, but complained of significant pain. Hemoglobin dropped to 9 for which she received 1 unit of packed RBCs on 06/17/2019. Subsequent, diabetes was better controlled. WBC count came down to 8600. All the antibiotics were stopped and oral Omnicef and doxycycline for 10 days were started. She was placed in knee immobilizer and was transferred here for ongoing care. LEVEL OF FUNCTION AT THE TIME OF ADMISSION: She required setup for the eating, oral hygiene, supervision for toileting, bathing, setup for upper body dressing, supervision for lower body dressing, set up for the footwear. She was independent rolling in bed, sitting to lying, lying to sitting, supervision for sit to stand, chair transfer, toilet transfer, car transfer, walking 10 feet. She was unable to walk 50 feet with 2 turns, unable to walk 10 feet on uneven surfaces. She was unable to take 4 steps, 12 steps. She was unable to pickup any object and she was unable to take the wheelchair to 150 feet though she was independent for wheelchair for 50 feet and dependent for curb or step as well. ANTICIPATED REHAB GOALS: Were to make her independent in all the modalities except required supervision for curb or step, partial assistance for 4 steps, and remained unable to take the 12 steps. LEVEL OF FUNCTION AT THE TIME OF DISCHARGE: The patient became independent eating, oral hygiene, toileting, and upper body dressing, required only supervision for bathing, required setup for the lower body dressing, footwear, became independent rolling in bed, sit to lying, lying to sitting, sit to stand, chair transfer, toilet transfer, car transfer, and walking 10 feet and required supervision for walking 50 feet with 2 turns. She was unable to walk 150 feet, required supervision for walking 10 feet on uneven surfaces, partial assistance for curb or step, 4 steps, and 12 steps, supervision for picking objects, but became independent for wheelchair up to 150 feet. HOSPITAL COURSE: During the hospitalization, she was involved in the physical therapy and occupational therapy actively. No other consultants were involved up to the discharge, she was able to
== END 2019-06-23 12:00 | disposition home health service (06) | DRG 561 ==
PROVIDERS: Admitting Provider Psychiatry & Neurology Neurology; Visit Provider Psychiatry & Neurology Neurology
DX: Z47.81 Encounter for orthopedic aftercare following surgical amputation (principal); Z89.511 Acquired absence of right leg below knee; I70.203 Unspecified atherosclerosis of native arteries of extremities, bilateral legs; D64.9 Anemia, unspecified; E11.51 Type 2 diabetes mellitus with diabetic peripheral angiopathy without gangrene; E11.65 Type 2 diabetes mellitus with hyperglycemia; E11.42 Type 2 diabetes mellitus with diabetic polyneuropathy; E11.319 Type 2 diabetes mellitus with unspecified diabetic retinopathy without macular edema; F41.8 Other specified anxiety disorders; F17.210 Nicotine dependence, cigarettes, uncomplicated; T40.605D Adverse effect of unspecified narcotics, subsequent encounter; Z90.5 Acquired absence of kidney; Z79.4 Long term (current) use of insulin; Z85.528 Personal history of other malignant neoplasm of kidney; Z91.19 Patient's noncompliance with other medical treatment and regimen
CPT/HCPCS: 36415; 80048; 85025; 87081; 97110; 97116; 97161; 97165; 97530; 97535; A9270; J1815